=== PATIENT | male | born 1935 | race Caucasian/White ===

== ENCOUNTER 2024-04-09 10:26 | Outpatient (CLI) | payer MEDICARE | END 2024-04-09 10:27 | disposition home or self-care (01) | LOC: CSHCT 10:26 | PROVIDERS: ATTEND Internal Medicine | DX: I31.39 Other pericardial effusion (noninflammatory) (principal); C64.1 Malignant neoplasm of right kidney, except renal pelvis; D50.8 Other iron deficiency anemias; I31.2 Hemopericardium, not elsewhere classified; E27.8 Other specified disorders of adrenal gland | CPT/HCPCS: 71250 ==